=== PATIENT | female | born 1965 | race Caucasian/White ===

== ENCOUNTER → 2017-01-21 | Outpatient (CLI) | payer OTHER | LOC: FIMAGING 07:54 | PROVIDERS: ATTEND Obstetrics & Gynecology | DX: Z12.31 Encounter for screening mammogram for malignant neoplasm of breast (principal) | CPT/HCPCS: G0202 ==

== ENCOUNTER 2017-06-22 01:51 | Emergency (ER) | payer OTHER ==
[2017-06-22 01:55] VITALS: RESP 18; TEMP 98.6
[2017-06-22 03:35] LABS: % IMMATURE GRANULYOCYTES 0.2 % (0.0-1.1); ABSOLUTE IMMATURE GRANULOCYTES 0.01 10^3/uL (0.00-0.10); ADD DIFF? NO; ADD MORPH? NO; ADD SCAN? NO; ATYPICAL LYMPHOCYTE FLAG 0 (0-99); FRAGMENT RBC FLAG 0 (0-99); HEMATOCRIT 37.5 % (38.0-47.0); HEMOGLOBIN 13.4 g/dL (12.6-16.3); LEFT SHIFT FLG 0 (0-99); LIPEMIA HEMOLYSIS FLAG 90 (0-99); MEAN CELL HEMOGLOBIN 33.2 pg (27.9-34.1); MEAN CELL HEMOGLOBIN CONCENTR. 35.7 g/dL (32.4-36.7); MEAN CELL VOLUME 92.8 fL (81.5-99.8); PLATELET CLUMPS FLAG 20 (0-99); PLATELET COUNT 214 10^3/uL (150-400); RED BLOOD CELL COUNT 4.04 10^6/uL (4.18-5.33); RED CELL DISTRIBUTION WIDTH 11.4 % (11.5-15.2)
[2017-06-22 03:52] LABS: ANION GAP 10 mEq/L (8-16); CALCIUM 9.1 mg/dL (8.5-10.4); CARBON DIOXIDE 25 mEq/l (22-31); CHLORIDE 109 mEq/L (97-110); CREATININE 0.7 mg/dL (0.6-1.0); GLOMERULAR FILTRATION RATE > 60; GLUCOSE 109 mg/dL (70-100); SODIUM 144 mEq/L (134-144)
[2017-06-22 04:04] LABS: TROPONIN I < 0.012 ng/mL (0.000-0.034)
--- NOTE | 2017-06-22 04:11 | EDPHY ---
H & P Stated Complaint: RACING HEARTRATE Time Seen by Provider: 06/22/17 02:17 HPI/ROS: HPI The patient presents with sensation of racing heartbeat which occurred about an hour prior to presentation and awoke her from sleep. She felt as if her heart was beating too fast. She waited about an hour and symptoms continued, so she came into the emergency department. She says her heart rate is normally in the 60s and when she checked it it was in the 80s to 90s. This was not associated with any chest pain or trouble breathing. She did have to take some deep breaths when she 1st noticed it. She has 1 similar episode which occurred when she was skiing at elevation. She is feeling a little bit better currently. Yesterday, she does say that she drank more alcohol than usual, having a drink at lunch and then again at dinner. Otherwise she had a normal day.. REVIEW OF SYSTEMS Constitutional: No fever, no chills. Eyes: No discharge. ENT: No sore throat. Cardiovascular: No chest pain, no palpitations. Respiratory: No cough, no shortness of breath. Gastrointestinal: No abdominal pain, no vomiting. Genitourinary: No hematuria. Musculoskeletal: No back pain. Skin: No rashes. Neurological: No headache. PMHx: Hypercholesterolemia Soc Hx: Lives at home with her family, occasional alcohol use PHYSICAL General Appearance: Alert, no distress Eyes: Pupils equal and round no pallor or injection ENT, Mouth: Mucous membranes moist Respiratory: There are no retractions, lungs are clear to auscultation Cardiovascular: Regular rate and rhythm Gastrointestinal: Abdomen is soft and non-tender, no masses, bowel sounds normal Neurological: A&O, moves all extremities Skin: Warm and dry, no rashes Musculoskeletal: Neck is supple non tender Extremities: symmetrical, full range of motion Psychiatric: Patient is oriented X 3, there is no agitation Source: Patient Exam Limitations: No limitations - Personal History LMP (Females 10-55): Now Current Tetanus/Diphtheria Vaccine: Yes Current Tetanus Diphtheria and Acellular Pertussis (TDAP): Yes - Medical/Surgical History Hx Asthma: No Hx Chronic Respiratory Disease: No Hx Diabetes: No Hx Cardiac Disease: No Hx Renal Disease: No Hx Cirrhosis: No Hx Alcoholism: No Other PMH: HIGH CHOLESTEROL - Social History Smoking Status: Never smoked Constitutional: Initial Vital Signs Temperature (C) 37.0 C 06/22/17 01:52 Heart Rate 88 06/22/17 01:52 Respiratory Rate 18 06/22/17 01:52 Blood Pressure 130/60 H 06/22/17 01:52 O2 Sat (%) 100 06/22/17 01:52 O2 Delivery Mode Room Air Allergies/Adverse Reactions: penicillin G Allergy (Verified 06/22/17 01:56) Sulfa (Sulfonamide Antibiotics) Allergy (Verified 06/22/17 01:56) Home Medications: Medication Instructions Recorded NK [No Known Home Meds] 06/22/17 Medical Decision Making - Diagnostics EKG Interpretation: EKG: Complete interpretation has been separately recorded in the [employer] archive. Summary impression: Normal sinus rhythm Differential Diagnosis: This is a 52-year-old female who presents with palpitations which awoke her from sleep tonight. They were associated with shortness of breath, this is now resolved. On exam, she is well-appearing, her heart rate is normal. Her heart rate is slightly elevated from her baseline. Differential diagnosis includes dehydration, arrhythmia such as atrial fibrillation, PACs, ACS is a consideration. In the emergency department, patient was monitored on the radiation monitor with no events on telemetry. EKG was unremarkable. Basic labs were also normal. I feel she could of been suffering from PACs. She did drink more alcohol yesterday than usual. She may have mild dehydration as well. She will be discharged home and I have given her Cardiology follow-up if she would like to. - Data Points Laboratory Results: Laboratory Results 06/22/17 03:25 06/22/17 03:25 Departure - Departure Disposition: Home, Routine, Self-Care Clinical Impression: Palpitations Condition: Good Instructions: Heart Palpitations (DC) Additional Instructions: Please return to the emergency department if your worse in any way. Otherwise, if your symptoms persist, you can follow up with the merchandising execution associate listed below. Referrals: Keo Lentz MD [Medical Doctor] - As per Instructions
[2017-06-22 04:33] VITALS: BP 106/59; PULSE 73; O2SAT 94
--- NOTE | 2017-06-24 08:58 | CPEKG ---
Heart Rate: 78 RR Interval: 769 P-R Interval: 144 QRSD Interval: 98 QT Interval: 420 QTC Interval: 479 P [place]: 69 QRS [place]: 79 T Wave [place]: 53 EKG Severity - NORMAL ECG - EKG Impression: SINUS RHYTHM Electronically Signed By: Klever Marrero 24-Jun-2017 21:35:09
== END 2017-06-22 04:31 | disposition home or self-care (01) ==
DX: R00.2 Palpitations (principal)